=== PATIENT | male | born 1980 | race Caucasian/White ===

== ENCOUNTER 2022-05-25 04:26 | Emergency (ER) | payer OTHER, SELFPAY ==
[2022-05-25 04:27] VITALS: BP 131/109; PULSE 75; RESP 18; TEMP 37; O2SAT 99; BMI 27.1
[2022-05-25] MEDS: Ketorolac 30 MG/ML Syringe IV (05:07)
[2022-05-25] MEDS: 0.9% Normal Saline 1,000 ML 999 ML IV (05:07)
[2022-05-25] MEDS: dexAMETHasone 10 MG/ML Vial IV (05:09)
[2022-05-25] MEDS: Orphenadrine 60 MG/2 ML Ampul IV (05:10)
[2022-05-25 05:33] LABS: Anion Gap 7 (5-15); BUN 11 mg/dL (7-18); BUN/Creat Ratio 9.8 RATIO (10-20); Calcium,Total 8.6 mg/dL (8.5-10.1); Chloride 107 mmol/L (98-107); Creatinine, Serum 1.12 mg/dL (0.70-1.30); EST Glomerular Filtration Rate 76 mL/min (>60); Est Glom Filt Rate - Afr Amer 92 mL/min (>60); Estimated Creatinine Clearance 94.31 ml/min; Glucose 105 mg/dL (74-106); Magnesium 1.9 mg/dL (1.6-2.6); Potassium 3.6 mmol/L (3.5-5.1); Sodium Level 139 mmol/L (136-145)
--- NOTE | 2022-05-25 06:12 | EX.ED.DYSGE1 ---
HPI History of Present Illness Chief Complaint: Back Narrative Narrative: Patient is a 41-year-old male with past medical history of back problems. He states that he has had multiple ablations with really no symptom improvement. He states that his back will spasm on him severely approximately every 2 weeks. He states that the pain began last night but as time has progressed so has the spasm and back pain. He denies any excessive activity or trauma he denies any loss of bowel or bladder control or IV drug use. [facility] Medical History Chronic back pain Factor V deficiency Home Medications methocarbamol 500 mg tablet 1,000 mg PO 4X/DAY PRN PRN Muscle pain/spasm #56 tabs 05/25/22 [Rx Last Taken Unknown] Allergy/AdvReac Type Severity Reaction Status Date / Time No Known Allergies Allergy Verified 07/13/21 13:31 Family History (Updated 07/13/21 @ 13:32 by Laura Orellana) Other Factor V deficiency Social History (Updated 07/13/21 @ 13:32 by Laura Orellana) Smoking Status: Never smoker alcohol intake: never ROS ROS ED Constitutional Constitutional ED: Denies chills or fever(s) ENT ENT ED: Denies sore throat Cardiovascular Cardiovascular: Denies chest pain Respiratory/Chest Respiratory/Chest: Denies cough or dyspnea Gastrointestinal Gastrointestinal: Denies abdominal pain, diarrhea, nausea or vomiting Genitourinary Genitourinary ED: Denies dysuria or hematuria Musculoskeletal Musculoskeletal: Reports back pain Integumentary Denies rash Neurologic Neurologic: Denies headache(s) or paresthesias Hematologic/Lymphatic Hematologic/Lymphatic: Denies easy bleeding or easy bruising EXAM Physical Exam Const Vital Signs: 05/25/22 04:27 Temperature 98.6 F Temperature Source Temporal Pulse Rate 75 Respiratory Rate 18 Blood Pressure 131/109 H Blood Pressure Mean 116 Pulse Ox 99 Oxygen Delivery Method Room Air Positive well nourished and well developed General Appearance ED: well developed Eyes PERRL and EOMs intact bilaterally Neck supple Resp normal respiratory effort and clear to auscultation bilaterally Cardio regular rate and regular rhythm Rate: other Other Details: Radial pulses are plus 2 out of 4 bilaterally are equal and symmetric GI normal to inspection, nondistended, normoactive bowel sounds, non-tender and non-distended Auscultation: normoactive bowel sounds Palpation: soft Back/Spine Back/Spine Narrative: No bony deformity or step-off of the thoracic or lumbar spine no midline pain on palpation. No saddle anesthesia. Negative straight leg raise. No clonus or Babinski. Patellar reflexes are plus 2 out of 4 bilaterally. There is positive Jad sign on left. There is pain on palpation over top the left piriformis muscle belly as well. Pain worsens with active range of motion. No overlying soft tissue changes to suggest trauma or infection Extremity normal to inspection Neuro oriented x3, CN's II-XII intact bilaterally and no sensory deficits noted Sensorium / Orientation: alert Psych mental status grossly normal Skin no rashes or lesions noted MDM MDM MDM Narrative Medical decision making narrative: Patient presented to the ER hypertensive but otherwise stable vitals. He reports he has a history of chronic back issues and he denies any recent trauma excessive activity loss of bowel or bladder control or IV drug use. Therefore there are no red flags by history or exam I do not feel there is need for imaging studies. As the patient states this is more of a spasm I did elect to check basic electrolytes which revealed no clinically significant finding. Patient was given IV fluids Toradol Norflex and Decadron and did have moderate improvement of his symptoms. Therefore at this time as history and exam do not reveal any obvious findings such as cauda equina or epidural abscess and there are no electrolyte derangements and patient's had improvement of symptoms with medication he is otherwise safe for discharge Lab Data Attestation: I reviewed the patient's lab results. Labs: Laboratory Results - last 24 hr 05/25/22 05:10 Sodium 139 Potassium 3.6 Chloride 107 Carbon Dioxide 25.0 Anion Gap 7 BUN 11 Creatinine 1.12 Estim Creat Clear Calc 94.31 Est GFR (MDRD) Af Amer 92 Est GFR (MDRD) Non-Af 76 BUN/Creatinine Ratio 9.8 L Glucose 105 Calcium 8.6 Magnesium 1.9 Discharge Plan Triage Chief Complaint: Back ED Provider: Alfred Sutherland Dx/Rx/DC Orders Clinical Impression: Acute exacerbation of chronic low back pain, Muscle spasm of back Instructions: ED Back Spasm, No Trauma Prescriptions: New methocarbamol 500 mg tablet 1,000 mg PO 4X/DAY PRN PRN (Reason: Muscle pain/spasm) Qty: 56 0RF Primary Care Provider: [facility] Referrals: [facility] [Primary Care Provider] - Disposition Disposition: Home, Self Care
== END 2022-05-25 06:50 | disposition home or self-care (01) ==
PROVIDERS: Emergency Provider Emergency Medicine; Visit Provider Emergency Medicine
DX: M54.50 Low back pain, unspecified (principal); G89.29 Other chronic pain; M62.830 Muscle spasm of back
CPT/HCPCS: 80048; 83735; 96374; 96375; 99283; J7030; A4216

== ENCOUNTER 2023-05-24 12:03 | Emergency (ER) | payer BC, SELFPAY ==
[2023-05-24 12:04] VITALS: BP 137/98; PULSE 108; RESP 22; TEMP 37.2; O2SAT 96; BMI 27.3
--- NOTE | 2023-05-24 12:22 | CT_ITS ---
STUDY: CTA CHEST REASON FOR EXAM: Male, 42 years old. CP with H/O PEs RADIATION DOSAGE (If Supplied By Facility): CTDIvol = ( 14.11 ) mGy, DLP = ( 407.19 ) mGycm TECHNIQUE: The examination was performed with the intravenous administration of IV 100mL Isovue-370. Post-processing of the angiographic images was performed, with multiplanar reformation and 3D reconstruction. Individualized dose optimization techniques were used for this CT. COMPARISON: No relevant prior comparison study available FINDINGS: Normal enhancement of the main pulmonary artery and right and left pulmonary arteries. Normal enhancement of the bilateral peripheral pulmonary arteries. There is no demonstrated pulmonary embolism. Difficult to evaluate the distal peripheral branches. Normal thoracic aorta and visualized great vessels. There is no demonstrated aortic dissection. Normal heart and pericardium. Normal mediastinum. Normal hilar regions. Normal visualized trachea and bronchi. The lungs are well expanded. There are no pulmonary infiltrates. Atelectatic changes in both lower lungs. There are no pleural effusions. Normal chest wall structures. Normal osseous structures. Normal visualized upper abdomen. CT/CTA Chest W/WO Contrast IMPRESSION: 1. No evidence of pulmonary embolism or aortic dissection. 2. Atelectatic changes in the lower lungs. 3. No focal infiltrate or pleural effusions is seen. Electronically Signed: Feroz Crowder MD at 14:04 EST ,
--- NOTE | 2023-05-24 12:23 | EX.ED.DYSGE1 ---
HPI History of Present Illness Chief Complaint: Cough Informant: patient Onset/Context/Timing Onset: Days Narrative Narrative: Patient presents secondary to fevers and bodyaches since . Yesterday he developed respiratory symptoms with cough and congestion. He states when he gets a coughing spell he gets sharp pain in his left chest that radiates down his left arm. It last for about 30 seconds and then resolves. Patient does have a history of factor V and has had prior blood clots including pulmonary emboli. He is not currently on blood thinners. [facility] Medical History Chronic back pain Factor V deficiency Home Medications NK 05/24/23 [History Last Taken Unknown] Allergy/AdvReac Type Severity Reaction Status Date / Time No Known Allergies Allergy Verified 07/13/21 13:31 Family History Other Factor V deficiency Social History Smoking Status: Never smoker alcohol intake: never ROS ROS ED Constitutional Constitutional ED: Reports chills and fever(s) Eyes Eyes: Denies change in vision or discharge from eye(s) ENT ENT ED: Denies discharge from eye(s), rhinorrhea or sore throat Cardiovascular Cardiovascular: Reports chest pain and palpitations Respiratory/Chest Respiratory/Chest: Reports cough and dyspnea Gastrointestinal Gastrointestinal: Reports nausea; Denies abdominal pain, diarrhea or vomiting Musculoskeletal Musculoskeletal: Denies back pain or extremity pain Integumentary Reports rash; Denies Abrasions Neurologic Neurologic: Denies headache(s) or weakness Psychiatric Psychiatric: Denies anxiety or depression Allergic/Immunologic Allergic/Immunologic ED: Denies lip swelling or urticaria EXAM Physical Exam Const Vital Signs: 05/24/23 12:04 05/24/23 12:39 05/24/23 12:40 Temperature 99 F Temperature Source Temporal Pulse Rate 108 H 99 Respiratory Rate 22 H 18 Respiratory Depth Normal Respiratory Pattern Normal Blood Pressure 137/98 H 144/95 H Blood Pressure Mean 111 111 Pulse Ox 96 95 Oxygen Delivery Method Room Air Room Air Room Air Positive well nourished and well developed General Appearance ED: well developed Eyes EOMs intact bilaterally Chest Wall inspection of chest normal and palpation of chest normal Resp normal respiratory effort and clear to auscultation bilaterally Cardio regular rate and regular rhythm GI non-tender Auscultation: hypoactive bowel sounds Palpation: soft Extremity Extremity Narrative: Dry superficial rash to the posterior left distal calf. No sign of true cellulitis. Neuro oriented x3 and no sensory deficits noted Motor Exam: strength 5/5 throughout Psych mental status grossly normal MDM MDM MDM Narrative Medical decision making narrative: Patient placed on monitor and storage bin tender. EKG obtained to evaluate for cardiac arrhythmia/ischemia. Labwork obtained to evaluate for leukocytosis, anemia, and electrolyte derangement. Given the patient's history will obtain a CTA of the chest to evaluate for potential PE. History & Record Review Discussion w/independent historian: Patient and Significant other Lab Data Attestation: I reviewed the patient's lab results. Labs: Laboratory Results - last 24 hr 05/24/23 12:40 WBC 5.6 RBC 5.64 Hgb 16.4 Hct 48.3 MCV 85.6 MCH 29.1 MCHC 34.0 RDW Std Deviation 39.9 RDW Coeff of Jesu 12.9 Plt Count 155 MPV 9.5 Immature Gran % (Auto) 0.200 Neut % (Auto) 74.0 H Lymph % (Auto) 15.3 L Sequoyah % (Auto) 9.4 Eos % (Auto) 0.9 Baso % (Auto) 0.2 Absolute Neuts (auto) 4.1 Absolute Lymphs (auto) 0.85 Nucleated RBC % 0 PT 12.7 INR 1.0 APTT 31.0 Sodium 136 Potassium 4.3 Chloride 104 Carbon Dioxide 28.0 Anion Gap 4 L BUN 10 Creatinine 1.20 Estim Creat Clear Calc 87.12 Est GFR (MDRD) Af Amer 85 Est GFR (MDRD) Non-Af 70 BUN/Creatinine Ratio 8.3 L Glucose 126 H Calcium 8.6 Total Bilirubin 0.50 Direct Bilirubin 0.15 AST 19 ALT 44 Alkaline Phosphatase 58 Troponin I High Sens 5 Total Protein 7.2 Albumin 3.6 Globulin 3.6 Radiography Diagnostic Testing: Clinical Impression(s) from Imaging Studies Chest CTA 05/24/23 12:22 IMPRESSION: 1. No evidence of pulmonary embolism or aortic dissection. 2. Atelectatic changes in the lower lungs. 3. No focal infiltrate or pleural effusions is seen. Electronically Signed: Feroz Crowder MD at 14:04 EST , EKG Initial EKG: Attestation: I personally reviewed and interpreted this EKG as follows: Interpretation: Sinus Tachycardia (Sinus tachycardia at 108 with a right bundle branch block. No acute ischemia.) Treatment and Re-Evaluation :: CBC was in a white count 5.6 with a hemoglobin of 16.4. 74% neutrophils noted. Coags unremarkable. Chemistry studies are normal. LFTs unremarkable. Troponin is normal at 5. EKG is sinus tachycardia at 108 with a right bundle branch block. I do not have any prior studies available for comparison. CTA of the chest is obtained and reveals no evidence of pulmonary embolism. No infiltrate. COVID test is negative. Influenza test is positive for flu B. Test results discussed with patient and at bedside. He will continue supportive care. I do recommend he follow-up with his primary care physician regarding potential need for chronic anticoagulation as he has had multiple clots with a history of factor V. Discharge Plan Triage Chief Complaint: Cough Other Complaint: Shortness of Breath ED Provider: Annette Madrigal Dx/Rx/DC Orders Clinical Impression: Influenza B Instructions: ED Influenza (Adult) Prescriptions: No Action NK [facility] Provider[facility] Referrals[place] [facility] [Primary Care Provider] - 1 Week Activity Restrictions/Additional Instructions: Please follow-up your primary care physician. You should discuss whether you need to be on chronic anticoagulation given your factor V status with history of multiple clots. Disposition Disposition: Home, Self Care
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
[2023-05-24 12:39] VITALS: BP 144/95; PULSE 99; RESP 18; O2SAT 95
[2023-05-24 12:40] VITALS: O2SAT 95
[2023-05-24 12:51] LABS: Absolute Lymphocyte Count 0.85 X10^3/uL (0.83-4.51); Absolute Neutrophil Count 4.1 X10^3/uL (2.0-7.7); Basophil# 0.01 X10^3/uL; Basophil% 0.2 % (0-1); Eosinophil# 0.05 X10^3/uL; Eosinophils% 0.9 % (0-5); Hematocrit 48.3 % (40-54); Hemoglobin 16.4 g/dL (13.0-16.5); Lymphocyte # 0.85 X10^3/ul (0.83-4.51); Lymphocyte % 15.3 % (19-41); Mean Corpuscular Hgb 29.1 pg (27.0-32.0); Mean Corpuscular Volume 85.6 fL (80-94); Mean Platelet Vol. 9.5 fl (6.2-12.0); Monocyte# 0.52 X10^3/uL; Monocyte% 9.4 % (0-10); NRBC Flagged by Analyzer 0 % (0-5); Neutrophil # 4.11 X10^3/uL (2.7-7.7); Platelet Count 155 K/mm3 (150-450); RBC Distribution Width CV 12.9 % (11.6-14.6); RBC Distribution Width SD 39.9 fl (35.1-43.9); Red Blood Count 5.64 M/mm3 (4.6-6.2); White Blood Count 5.6 K/mm3 (4.4-11.0)
[2023-05-24 13:02] LABS: Prothrombin Time (Protime)PT. 12.7 SECONDS (11.7-14.9)
[2023-05-24] MEDS: 0.9% Normal Saline (1000mL) 1,000 ML 150 ML IV (13:05)
[2023-05-24 13:09] LABS: AST(SGOT) 19 U/L (15-37); Alanine Aminotransfer ALT/SGPT 44 U/L (16-61); Albumin, Serum 3.6 g/dL (3.2-5.0); Alkaline Phosphatase 58 U/L (45-117); Anion Gap 4 (5-15); BUN 10 mg/dL (7-18); BUN/Creat Ratio 8.3 RATIO (10-20); Bilirubin, Direct 0.15 mg/dL (0.00-0.30); Calcium,Total 8.6 mg/dL (8.5-10.1); Chloride 104 mmol/L (98-107); EST Glomerular Filtration Rate 70 mL/min (>60); Est Glom Filt Rate - Afr Amer 85 mL/min (>60); Estimated Creatinine Clearance 87.12 ml/min; Globulin 3.6 g/dL (2.2-4.2); Glucose 126 mg/dL (74-106); Potassium 4.3 mmol/L (3.5-5.1); Protein, Total 7.2 g/dL (6.4-8.2); Sodium Level 136 mmol/L (136-145); Troponin-I HS 5 pg/mL (3.0-78.0)
[2023-05-24 14:21] VITALS: BP 139/92; PULSE 90; RESP 20; O2SAT 93
== END 2023-05-24 14:37 | disposition home or self-care (01) ==
PROVIDERS: Emergency Provider Emergency Medicine; Visit Provider Emergency Medicine
DX: J10.1 Influenza due to other identified influenza virus with other respiratory manifestations (principal); D68.2 Hereditary deficiency of other clotting factors
CPT/HCPCS: 71275; 80048; 80076; 84484; 85025; 85610; 85730; 87631; 93005; 96360; 96361; 99284; J7030; A4216

== ENCOUNTER 2023-08-24 11:15 | Emergency (ER) | payer OTHER, SELFPAY ==
[2023-08-24 11:16] VITALS: BP 162/105; PULSE 71; RESP 16; TEMP 36.5; O2SAT 98; BMI 27.2
--- NOTE | 2023-08-24 11:25 | VDLE_ITS ---
Reason For Study: Right leg pain RIGHT LEFT GSV is normal. CFV is compressible, spontaneous, phasic, CFV is compressible, spontaneous, phasic, competent, and demonstrates normal competent and demonstrates normal augmentation. augmentation. FV is compressible, spontaneous, phasic, competent and demonstrates normal augmentation. POP V is compressible, spontaneous, phasic, competent and demonstrates normal augmentation. T/P Trunk is compressible. PTV is compressible. Acute deep vein thrombosis is noted in the Per V, SoleusV and GastrocV. It is dilated and NONCOMPRESSIBLE. Procedure This is a venous duplex using B-mode, color flow and spectral Doppler. Exam performed portable in ED. A preliminary report was called and/or faxed to Dr. Zaragoza. VL/Venous Duplex US, Unilateral Interpretation Summary Acute deep venous thrombosis right peroneal, soleus, and gastrocnemius veins. Patent and compressible right great saphenous vein Normal flow patterns left common femoral vein Ordering Physician: Edward Zaragoza Referring Physician: [facility] Performed By: Corina Avalos RVT
--- NOTE | 2023-08-24 11:25 | ED.VIS.LOWEX ---
HPI History of Present Illness Chief Complaint: Other, Pain/Inj Detail of Chief Complaint: Right leg pain Informant: patient Narrative Narrative: Patient injured his right ankle about 2 weeks ago, he has significant pain, swelling, bruising, all of that has been gradually improving since he has been trying to rest it, he saw orthopedics he had an orthotic boot heel he wore it for about 2 days, and he then went on vacation and decided to not wear the boot and just tried to rest it with an Hao wrap. For the last couple days he has been having pain in his distal calf with resolution of all of the swelling that was there, he states 3 days ago it was still swollen now it looks really good, the bruising has all come down into his foot and mostly resolved, he presents though because he is concerned about DVT which he has a history of due to factor V Leiden. No anticoagulants right now. Denies any chest pain, shortness of breath, palpitations, syncope. [facility] Medical History Chronic back pain Factor V deficiency Home Medications apixaban 5 mg (74 tabs) tablets in a dose pack (Eliquis DVT-PE Treat 30D Start) See Rx Instructions PO .COMPLEX #74 tabs 08/24/23 [Rx Last Taken Unknown] Allergy/AdvReac Type Severity Reaction Status Date / Time No Known Allergies Allergy Verified 08/24/23 11:18 Family History Other Factor V deficiency Social History Smoking Status: Never smoker alcohol intake: never ROS ROS ED Constitutional Constitutional ED: Denies chills or fever(s) Cardiovascular Cardiovascular: Denies chest pain, palpitations or syncope Respiratory/Chest Respiratory/Chest: Denies dyspnea Musculoskeletal Musculoskeletal: Reports extremity pain; Denies neck pain Integumentary Denies Abrasions, rash or wounds Neurologic Neurologic: Denies paresthesias or weakness EXAM Physical Exam Const Vital Signs: 08/24/23 11:16 Temperature 97.7 F L Temperature Source Temporal Pulse Rate 71 Respiratory Rate 16 Blood Pressure 162/105 H Blood Pressure Mean 124 Pulse Ox 98 Oxygen Delivery Method Room Air Positive well nourished and well developed General Appearance ED: well developed and NAD Neck full ROM and supple Back/Spine normal ROM and normal to inspection Extremity Extremity Narrative: Right lower extremity: Mild distal gastrocnemius tenderness as well as tenderness in the soleus distal to this, there are no palpable cords, there is no edema, there is mild dependent ecchymosis along the heel as well as the toes none of these areas are tender, he has limited range of motion of the right ankle due to pain but there is no significant instability or tenderness there is now. Neuro oriented x3, no focal motor deficits and no sensory deficits noted Sensorium / Orientation: alert Psych mental status grossly normal and thought process normal Skin no wounds Rashes: no rashes MDM MDM MDM Narrative Medical decision making narrative: Venous duplex ultrasound of the right lower extremity was able to be obtained during the patient's visit. I reviewed the preliminary report given to be verbally from the ultrasound radioisotope technologist, who reports multiple DVTs in veins of the right lower leg distal to the knee. Given his history of clotting disorder and the fact that he has an injury to his right ankle limiting movement, will anticoagulate him and have him follow-up. Given 1.5 mg/kg of Lovenox, to buy him some time until tomorrow to fill and start Eliquis. Discharge Plan Triage Chief Complaint: Other, Pain/Inj ED Provider: Edward Zaragoza Dx/Rx/DC Orders Clinical Impression: Acute deep vein thrombosis (DVT) of right lower extremity Instructions: DVT Dc Prescriptions: New Eliquis DVT-PE Treat 30D Start 5 mg (74 tabs) tablets,dose pack See Rx Instructions .ROUTE .COMPLEX Qty: 74 0RF Rx Instructions: orally per package directions Primary Care Provider: [facility],[place] Referrals: Shashank Lake MD [Med Staff - Active Staff] - 1-2 Weeks [place], [place] [Primary Care Provider] - Disposition Disposition: Home, Self Care
[2023-08-24] MEDS: Enoxaparin 150 MG/ML Syringe 135 MG SC (13:12)
[2023-08-24 13:15] VITALS: BP 166/94; PULSE 74; PULSE 85; RESP 14; RESP 16; TEMP 36.9; O2SAT 99
== END 2023-08-24 13:17 | disposition home or self-care (01) ==
PROVIDERS: Emergency Provider Emergency Medicine; Visit Provider Emergency Medicine
DX: I82.451 Acute embolism and thrombosis of right peroneal vein (principal); I82.461 Acute embolism and thrombosis of right calf muscular vein
CPT/HCPCS: 93971; 96372; 99283

== ENCOUNTER 2024-05-21 17:42 | Emergency (ER) | payer OTHER, SELFPAY ==
[2024-05-21 17:42] VITALS: BP 155/105; PULSE 53; RESP 16; TEMP 36.6; O2SAT 97; BMI 27.5
--- NOTE | 2024-05-21 17:52 | EX.ED.DYSGE1 ---
HPI History of Present Illness Chief Complaint: Flank Pain [facility] Medical History Chronic back pain Factor V deficiency Home Medications ?Medication ?Instructions ?Recorded ?Last Taken ?Type apixaban 5 mg (74 tabs) tablets in See Rx Instructions PO .COMPLEX 08/24/23 Unknown Rx a dose pack (Eliquis DVT-PE Treat #74 tabs 30D Start) Allergy/AdvReac Type Severity Reaction Status Date / Time No Known Allergies Allergy Verified 05/21/24 17:43 Family History Other Factor V deficiency Social History Smoking Status: Never smoker alcohol intake: never EXAM Physical Exam Const Vital Signs: 05/21/24 17:42 05/21/24 19:42 Temperature 98 F 98 F Temperature Source Oral Pulse Rate 53 L 78 Respiratory Rate 16 16 Blood Pressure 155/105 H 162/75 H Blood Pressure Mean 121 104 Pulse Ox 97 99 Oxygen Delivery Method Room Air MDM MDM MDM Narrative Medical decision making narrative: HISTORY OF PRESENT ILLNESS: 43-year-old male presents with concern for bilateral back pain. Notes this began 2 days ago. No falls or trauma noted. Notes pain with urination. Notes history of kidney stones. Notes this feels similar. Notes feel similar to prior kidney stone. Currently not on anticoagulation. Patient denies any saddle anesthesia, urinary retention, bowel or bladder incontinence, lower extremity weakness, fever or IV drug use, no recent spinal manipulation or surgery, no recent urinary catheterization. REVIEW OF SYSTEMS: Pertinent positives: Back pain, dysuria Pertinent negatives: Hematuria, urinary retention PHYSICAL EXAM: Nursing triage notes reviewed, Vital signs reviewed Constitutional: please see mdm HENT: MMM Eyes: Pupils equal round and reactive to light, Extraocular muscles intact Neck: No stridor, no JVD, full neck ROM Lungs: Clear to auscultation, No wheezing or rales. No increased work of breathing, no conversational dyspnea, no accessory muscle use, no nasal flaring. No respiratory distress noted Heart: Regular rate and rhythm, No murmurs, No rubs and No gallops, 2+ distal pulses (radial, femoral, posterior tibial) in all extremities Abdomen: Soft, there is no tenderness, rigidity, rebound or guarding, no obvious peritoneal signs, no palpable pulsatile abdominal masses, no auscultated abdominal bruit : No CVAT Back: No midline step-offs deformities Extremities: No edema Neuro: Intact sensation L1-S1 dermatomal distributions. Intact 5/5 strength in hip flexion (T12-L3). Knee extension (L2-L4). Ankle dorsiflexion (L4-L5). Ankle plantar flexion (S1). Great toe extension (L5). 2+ patellar and Achilles DTRs. Skin: No rash or lesions noted MEDICAL DECISION MAKING: Chief Complaint: Back pain External records reviewed: Reviewed prior imaging studies, allergies, vital signs, current medications Factors affecting care: factor V Leiden Social determinants of health: none History obtained from others: none Consults: none [facility] Narrative: The patient was initially hypertensive with a blood pressure of 155/105, otherwise afebrile and nontoxic-appearing. Exam without focal neurologic deficits. No stigmata of trauma. I considered the following differential diagnosis: Nephrolithiasis, pyelonephritis, UTI retroperitoneal bleed, musculoskeletal pain, space-occupying lesion of the spine (epidural abscess, cauda equina) I initially treated the patient with 15 mg IV Toradol, 2 mg IV morphine, 4 mg of IV Zofran. ALL IMAGES (IF OBTAINED) HAVE BEEN PERSONALLY REVIEWED AND INTERPRETED BY MYSELF. CT scan abdomen pelvis shows no evidence of kidney stone CBC with no leukocytosis, no anemia BMP without acute abnormalities, no acute kidney injury, no acute Urinalysis shows no evidence of urinary inflammation suggestive of UTI The synthesis of the patient's history, physical exam, labs images suggest no acute life-limiting etiology specifically no signs of obstructive uropathy, pyelonephritis, AAA, space-occupying lesion of the spine, RP bleed. The etiology the patient's remains unclear. This may be musculoskeletal. Gave Tylenol and ibuprofen instructions. Gave strict return precautions and follow-up instructions The patient and/or family, caregivers express understanding. The patient and/or family, caregivers agrees with the plan. Shared decision making: I will have a discussion with the patient and or visitors regarding risk/benefits of further testing or admission. They will be made aware of of the risk/benefits inherent in this decision they will be given the opportunity to voice understanding. Total critical care time today provided was at least 0 minutes. This excludes separately billable procedures. Critical care time (if documented) is secondary to the patient having high probability of clinically significant/life threatening deterioration in the patient's condition which required my urgent intervention. Impression: 1. Back pain 2. Flank pain Dispo: Discharge home This note was generated with [employer] dictation software. It may contain incorrect words, spelling, and punctuation that were not noted in review of the chart prior to signing. Lab Data Labs: Laboratory Results - last 24 hr 05/21/24 05/21/24 18:07 18:16 WBC 6.5 RBC 5.69 Hgb 16.7 H Hct 49.2 MCV 86.5 MCH 29.3 MCHC 33.9 RDW Std Deviation 39.9 RDW Coeff of Jesu 12.8 Plt Count 255 MPV 9.5 Immature Gran % (Auto) 0.300 Neut % (Auto) 40.5 L Lymph % (Auto) 41.2 H [place] % (Auto) 15.2 H Eos % (Auto) 2.3 Baso % (Auto) 0.5 Absolute Neuts (auto) 2.6 Absolute Lymphs (auto) 2.68 Nucleated RBC % 0 Sodium 134 L Potassium 4.1 Chloride 100 Carbon Dioxide 31.0 Anion Gap 2 L BUN 15 Creatinine 1.20 Estim Creat Clear Calc 86.22 Est GFR (MDRD) Af Amer 84 Est GFR (MDRD) Non-Af 70 BUN/Creatinine Ratio 12.5 Glucose 95 Calcium 9.1 Urine Color Yellow Urine Clarity Clear Urine pH 6.0 Ur Specific [place] 1.010 Urine Protein Negative Urine Glucose (UA) Normal Urine Ketones Negative Urine Occult Blood Negative Urine Nitrite Negative Urine Bilirubin Negative Urine Urobilinogen Normal Ur Leukocyte Esterase Negative Urine RBC 0-5 SEEN Urine WBC 0-5 SEEN Ur Squamous Epith Cells 0-5 SEEN Urine Bacteria 0 SEEN Urine Mucus 0 SEEN Radiography Diagnostic Testing: Clinical Impression(s) from Imaging Studies Abdomen/Pelvis CT 05/21/24 18:25 IMPRESSION: No acute findings in the abdomen or pelvis. Bilateral nonobstructing nephrolithiasis. Electronically Signed: Alfredo Castaneda MD at 19:51 EST , Discharge Plan Triage Chief Complaint: Flank Pain ED Provider: Mac Montero Dx/Rx/DC Orders Clinical Impression: Back pain Instructions: ED Flank Pain, Uncertain Cause Prescriptions: No Action Dewey DVT-PE Treat 30D Start 5 mg (74 tabs) tablets,dose pack See Rx Instructions .ROUTE .COMPLEX Qty: 74 0RF Rx Instructions: orally per package directions Primary Care Provider: [facility],[place] Referrals: Jamal Persaud MD [Med Staff - Active Staff] - [place] [Primary Care Provider] - Activity Restrictions/Additional Instructions: Thank you for trusting us with your care today! Please take Tylenol (2 pills, 650 mg), ibuprofen (2 pills, 400 mg) every 6 hours as needed for pain and fever control. Please return to the emergency department if your symptoms change or worsen. Please follow with your primary care physician (Dr. Persaud or [place]) for further outpatient evaluation and management. Print Language: [place] Disposition Disposition: Home, Self Care Discharge Date/Time: 05/21/24 20:38
[2024-05-21 18:13] LABS: Absolute Lymphocyte Count 2.68 X10^3/uL (0.83-4.51); Absolute Neutrophil Count 2.6 X10^3/uL (2.0-7.7); Basophil# 0.03 X10^3/uL; Basophil% 0.5 % (0-1); Eosinophil# 0.15 X10^3/uL; Eosinophils% 2.3 % (0-5); Hematocrit 49.2 % (40-54); Hemoglobin 16.7 g/dL (13.0-16.5); Lymphocyte # 2.68 X10^3/ul (0.83-4.51); Lymphocyte % 41.2 % (19-41); Mean Corp Hgb Conc 33.9 g/dL (32-36); Mean Corpuscular Hgb 29.3 pg (27.0-32.0); Mean Corpuscular Volume 86.5 fL (80-94); Mean Platelet Vol. 9.5 fl (6.2-12.0); Monocyte# 0.99 X10^3/uL; Monocyte% 15.2 % (0-10); NRBC Flagged by Analyzer 0 % (0-5); Neutrophil # 2.64 X10^3/uL (2.7-7.7); Neutrophil % 40.5 % (47-70); Platelet Count 255 K/mm3 (150-450); RBC Distribution Width CV 12.8 % (11.6-14.6); RBC Distribution Width SD 39.9 fl (35.1-43.9); Red Blood Count 5.69 M/mm3 (4.6-6.2); White Blood Count 6.5 K/mm3 (4.4-11.0)
[2024-05-21] MEDS: Ketorolac 15 MG/ML Vial IV (18:13)
[2024-05-21] MEDS: Ondansetron 4 MG/2 ML Vial IV (18:13)
[2024-05-21 18:23] LABS: Bacteria 0 SEEN /hpf (None Seen); Mucous, Urine 0 SEEN /hpf (<or=2+)
--- NOTE | 2024-05-21 18:25 | CT_ITS ---
INDICATION: bilateral lower back/flank pain, hx of stones EXAMINATION: CT ABDOMEN AND PELVIS WITHOUT CONTRAST - CT Abdomen And Pelvis W/O Contrast Injection TECHNIQUE: Helically acquired images were obtained of the abdomen and pelvis without oral or IV contrast. A radiation dose optimization technique was used for this scan. IV Contrast dosage and agent: None. Oral contrast: None. COMPARISON: None. FINDINGS: LOWER CHEST: Lung bases are clear. No cardiomegaly or pericardial effusion. LIVER: Homogeneous. No focal mass. GALLBLADDER AND BILIARY TREE: No calcified gallstones. No gallbladder distension or wall edema. No intra- or extrahepatic biliary ductal dilation. PANCREAS: No focal cystic or solid mass. SPLEEN: Normal size without focal cystic or solid mass. ADRENAL GLANDS: No nodules. KIDNEYS AND URETERS: Bilateral nonobstructing renal calculi. No hydronephrosis. PERITONEUM: No ascites or free air. BOWEL: Normal appendix. No stomach or bowel distension. No focal inflammatory change. LYMPH NODES: No enlarged mesenteric or retroperitoneal lymph nodes. VESSELS: Aorta is non-dilated. URINARY BLADDER: Unremarkable. REPRODUCTIVE ORGANS: No pelvic masses. ABDOMINAL WALL: Small fat-containing umbilical hernia. BONES: Unremarkable. CT/Abdomen/Pelvis without Cont IMPRESSION: No acute findings in the abdomen or pelvis. Bilateral nonobstructing nephrolithiasis. Electronically Signed: Alfredo Castaneda MD at 19:51 EST ,
[2024-05-21 18:30] LABS: Anion Gap 2 (5-15); BUN 15 mg/dL (7-18); BUN/Creat Ratio 12.5 RATIO (10-20); Calcium,Total 9.1 mg/dL (8.5-10.1); Chloride 100 mmol/L (98-107); EST Glomerular Filtration Rate 70 mL/min (>60); Est Glom Filt Rate - Afr Amer 84 mL/min (>60); Estimated Creatinine Clearance 86.22 ml/min; Glucose 95 mg/dL (74-106); Potassium 4.1 mmol/L (3.5-5.1); Sodium Level 134 mmol/L (136-145)
[2024-05-21 18:32] LABS: Color, Urine Yellow (Yellow); Glucose, Dipstick Normal (Normal); Ketone-Dipstick Negative (Negative); Leukocyte Esterase-Dipstick Negative /ul (Negative); Nitrite-Dipstick Negative (Negative); Occult Blood-Urine Negative /ul (Negative); Protein-Dipstick Negative (Negative); Urine Bilirubin Dipstick Negative (Negative); Urine Clarity Clear (Clear); Urine Urobilinogen Normal (Normal)
[2024-05-21 19:02] LABS: Red Blood Cells-Urine 0-5 SEEN /hpf (0-5); Squamous Epithelial Cells - UA 0-5 SEEN /hpf (0-5); White Blood Cells 0-5 SEEN /hpf (0-5)
[2024-05-21 19:42] VITALS: BP 162/75; PULSE 78; RESP 16; TEMP 36.6; O2SAT 99
== END 2024-05-21 20:38 | disposition home or self-care (01) ==
PROVIDERS: Emergency Provider Emergency Medicine; Visit Provider Emergency Medicine
DX: R10.9 Unspecified abdominal pain (principal); M54.9 Dorsalgia, unspecified
CPT/HCPCS: 74176; 80048; 81001; 85025; 96374; 96375; 99283; A4216; J2405